=== PATIENT | female | born 1955 | race Caucasian/White ===

== ENCOUNTER 2019-01-07 04:16 | Emergency (ER) | payer OTHER ==
[~2019-01-07] VITALS: Ht 172.7 cm; Wt 94.8 kg
--- NOTE | ~2019-01-07 | HC ---
[facility] [place] [address] CONSULTATION Name: CAR CURRIE Room #: 170-12 ADM IN ..#: [id number] Admission: 01/07/19 ������������������ Attend Phys: Deyvi Ashley MD Discharge: ������������������ Date of : 55 Report #: [id number] THIS REPORT FOR: //name// CC: Sujata Ashley DATE OF SERVICE: 01/07/2019 CHIEF COMPLAINT: This patient was seen in the ED by Dr. Forman. Initially, I reviewed all the chart. The patient is a 63-year-old female, came through the Emergency Room because of abdominal pain radiating to the groin, has some nausea and the workup, CT abdomen and pelvis showed she had diverticulitis. No perforation. She also had AFib, RVR, given a bolus of Cardizem 15, followed by started on a [address] Forman contacted me for the admission to the hospital, and I initially had a separate admission. I reviewed the whole chart and I put initial orders in the system. Please see the orders and the details. Continue the Cardizem drip, antibiotics and further cardiac workup and shortly around 8, I got a call that the patient wants to leave AMA from the Emergency Room. At that time, I have not even seen and examined the patient. So I walked to the Emergency Room. I went to the Emergency Room 12 that is where the patient was. Dr. Hooper and the ED physician who took over from Dr. Forman and then the RN, [place], they were both in the room. They have been having a discussion with the patient. I did discuss the case with Dr. Hooper also and according to Dr. Hooper, he actually did explain to the patient in detail in front of me, I was there during that conversation also. Dr. Hooper has explained about her heart problem, AFib, RVR, diverticulitis and needing a treatment of the patient's pain. The patient is alert, awake, oriented. She was not very happy with the care she got in the Emergency Room, but she is alert, awake, oriented. She is capable of making her own decision, and she decided she wants to just leave. She does not want to stay in the hospital, and she just wanted to leave against medical advice. I and Dr. Hooper had discussion outside the room again, and we both in agreement that the patient is alert, awake, oriented. She is capable of making all the decisions. She understands all the risk and the benefits, so after that I went back again and had a long discussion with the patient and going through everything again. I explained to her that with AFib, RVR currently, she is on the drip and heart rate uncontrolled that can compromise her, and she could if it is not treated, and she could get complicated, can go into heart failure, could from that. Another big issue she has is diverticulitis. At present, she does not have perforation, but it is infected and has needed inpatient treatment. If not treated that could lead to further complication getting septic and possibly from that. The patient does understand all the risks, and she still insists on that she is not going to stay in the hospital. Again, she is capable of making her own decision. Basically, she signed AMA paper. [facility] [address] [place] [address] CONSULTATION Name: CAR CURRIE Room #: 170-12 ADM IN M.R.#: [id number] Admission: 01/07/19 ������������������ Attend Phys: Deyvi Ashley MD Discharge: ������������������ Date of : 55 Report #: [id number] Please see all the notes in the chart by the ED documentation for further details. In brief, I have not examined the patient. I did have an initial orders in the chart to get her on the floor, but the patient has now decided leaving against medical advice, and so I have not done any further admission work including I have not examined the patient. ��������������������������������������������� ���������������������������������������� By: ��������������������������������������������� [id number] Deyvi Ashley MD /nt
[~2019-01-07 04:16] MED LIST: XANAX 0.25 MG0.25 MG PO
[2019-01-07 04:27] VITALS: BP 126/90
[2019-01-07 05:00] LABS: HEMATOCRIT 44.8 % (37.0-47.0); HEMOGLOBIN 15.2 gm/dL (12.0-15.0); MCH 29.1 pg (26.0-34.0); MCHC 33.9 g/dL (28.0-37.0); MCV 85.7 fL (80.0-100.0); RBC 5.22 mil/uL (4.20-5.00); RDW 13.1 % (10.5-14.5); WBC 10.9 thou/uL (4.0-11.0)
[2019-01-07 05:07] LABS: ANION GAP 10 mmol/L (7-16); BUN 23 mg/dL (7-18); CALCIUM 10.6 mg/dL (8.5-10.1); CHLORIDE 103 mmol/L (98-107); CO2 25 mmol/L (21-32); GLUCOSE 111 mg/dL (74-106); POTASSIUM 3.7 mmol/L (3.5-5.1); SODIUM 138 mmol/L (136-145)
[2019-01-07 05:17] LABS: LIPASE 156 U/L (73-393); SGOT 24 U/L (15-37); SGPT 48 U/L (30-65); TOTAL BILIRUBIN 0.6 mg/dL (<0.1-1.0); TOTAL PROTEIN 7.7 g/dL (6.4-8.2); TROPONIN-I <0.06 ng/mL (<0.06)
[2019-01-07 05:27] LABS: URINE BILIRUBIN NEGATIVE (Negative); URINE BLOOD 1+ (Negative); URINE CLARITY CLEAR; URINE COLOR YELLOW; URINE GLUCOSE-RANDOM* NEGATIVE (Negative); URINE KETONES NEGATIVE (Negative); URINE NITRITE-REFLEX NEGATIVE (Negative); URINE PROTEIN (DIPSTICK) NEGATIVE (Negative); URINE SPECIFIC GRAVITY 1.025 (1.005-1.035); URINE UROBILINOGEN 0.2 E.U./dl (0.2-1.0)
[2019-01-07 05:36] LABS: AMP/METHAMP POSITIVE (Negative); BARBITURATES Negative (Negative); BENZODIAZEPINES POSITIVE (Negative); COCAINE Negative (Negative); METHADONE Negative (Negative); OPIATES Negative (Negative); PCP Negative (Negative)
[2019-01-07 05:37] LABS: URINE LEUKOCYTES-REFLEX 1+ (Negative)
[2019-01-07 05:41] LABS: BACTERIA-REFLEX 1-9 Few /HPF (None Seen); CRYSTALS None Seen /LPF (None Seen); HYALINE CASTS 4-10 Moderate /LPF (None Seen); MUCUS 0-3 Light strn/LPF (None Seen); SQUAMOUS 0-3 Few /LPF (0-3); URINE RBC 3-10 Few /HPF (0-2); URINE WBC-REFLEX 6-15 Few /HPF (0-5)
[2019-01-07 07:42] VITALS: BP 115/84
--- NOTE | 2019-01-07 07:50 | NUR ---
MONITOR ALARM SOUNDED, WENT TO CHECK ON PT. SHE WAS STANDING AT BEDSE WITH IV INFUSING. STATES IM WANTING TO GO HOME. I TOLD HER SHE HAS BEEN ADMITTED AND A ROOM IS ASSIGNED TO HER. SHE REPLIED,' idont care, i know my rights and i am not staying in this hospital. I will follow up with my pcp tommorrow.' INFORMED DR GARCIA AND HOSPITALIST WHO TALKED WITH PT AT BEDSIDE. PT STILL INSISTANT ON GOING HOME. PT IS ALERT AND ORIENTED X 4, STATES SHE IS AWARE OF HER RISKS OF LEAVING AND NOT RECEIVING MEDICAL CARE, AMONG THIS IS . PT AGREED TO SIGN AMA.
[2019-01-07 08:15] VITALS: BP 115/84
--- NOTE | 2019-01-08 08:49 | EKG ---
[place] [address] [facility] [employer] [place] [address] ELECTROCARDIOGRAM REPORT Name: CAR CURRIE [id number] ������������������ Admission: 01/07/19 ������������������ Attend Phys: Discharge: 01/07/19 ������������������ Date of : 55 Report #: [id number] ����������������������������������������������������������������� [id number] THIS REPORT FOR: //name// [facility] ED Test Date: 2019-01-07 Test Time: 04:51:25 Pat Name: CAR CURRIE Department: Room: 170 Gender: F Pediatric Acute Care Unit Nurse: GENARO : 1955 Requested By: Karin Forman Order Number: [id number] MD: Flex Romero Measurements Intervals [place] Rate: 143 P: TN: QRS: -16 QRSD: 94 T: QT: 317 QTc: 489 Interpretive Statements Atrial fibrillation Borderline left axis deviation Borderline repolarization abnormality Borderline prolonged QT interval No previous ECG available for comparison Electronically Signed On 01-08-2019 8:49:26 CDT by Flex Romero [email or web address] ��������������������������������������������� <ELECTRONICALLY SIGNED> ���������������������������������������� By: Flex Romero MD, [facility] ��������������������������������������������� 01/08/19 [id number] Flex Romero MD, FACC /EPI
== END 2019-01-07 08:15 | disposition left against medical advice (07) ==
LOC: ER 04:16 → EROBS 07:36 → ER 08:15 → EROBS 08:15
PROVIDERS: Student in an Organized Health Care Education/Training Program
DX: K57.32 Diverticulitis of large intestine without perforation or abscess without bleeding (principal); I48.91 Unspecified atrial fibrillation; E78.00 Pure hypercholesterolemia, unspecified; Z90.49 Acquired absence of other specified parts of digestive tract